=== PATIENT | female | born 1940 | race Caucasian/White ===

== ENCOUNTER → 2018-08-07 | Outpatient (CLI) | payer MEDICARE ==
--- NOTE | 2018-08-07 14:45 | BD ---
EXAMINATION TYPE: Axial Bone Density DATE OF EXAM: 08/07/2018 COMPARISON: NONE CLINICAL HISTORY: Age related osteoporosis Height: 59 IN Weight: 122 LBS FRAX RISK QUESTIONS: Family History (Parent hip fracture): YES FATHER History of Fracture in Adulthood: RT ANKLE 2017 LT ANKLE 2016 Secondary Osteoporosis: 3. Menopause before 45: YES HYST AGE 39 Rheumatoid Arthritis: YES RISK FACTORS HISTORY OF: Family History of Osteoporosis: YES FATHER Active: YES Diet low in dairy products/other sources of calcium: YES Postmenopausal woman: AGE 39 Lost more than 2 inches in height since high school: YES 3" MEDICATIONS: Osteoporosis Medications: YES Which medication: Fosamax How Lon + YEARS Additional Medications: CALCIUM, VIT D, FOSAMAX, MULTI VIT, VIT C, OMEPRAZOLE, EXAM MEASUREMENTS: Bone mineral densitometry was performed using the [employer] System. Bone mineral density as measured about the Lumbar spine is: ----- L1-L4(G/cm2): 1.364 T Score Values are as follows: ----- L2: -0.5 ----- L3: 2.5 ----- L4: 4.2 ----- L1-L4: 1.5 Bone mineral density BASELINE Bone mineral density about the R hip (g/cm2): 0.843 Bone mineral density about the L hip (g/cm2): 0.841 T Score values are as follows: -----R Neck: -1.4 -----L Neck: -1.4 -----R Total: -1.4 -----L Total: -1.8 Bone mineral density BASELINE IMPRESSION: Osteopenia (T Score between -2.5 and -1). There is slightly increased risk of fracture and the patient may be considered for treatment. Re-Screen 2-5 years. NOTE: T-SCORE=SD OF THE YOUNG ADULT MEAN.
== END ==
LOC: RADBDWWP 12:31
PROVIDERS: ATTEND Internal Medicine
DX: M85.80 Other specified disorders of bone density and structure, unspecified site (principal)
CPT/HCPCS: 77080